=== PATIENT | male | born 2000 ===

== ENCOUNTER 2021-09-04 13:04 | Emergency (ER) | payer SELFPAY ==
[~2021-09-04] VITALS: Ht 180.3 cm; Wt 80.0 kg
[2021-09-04 13:07] VITALS: BP 126/65
== END 2021-09-04 14:00 | disposition left against medical advice (07) ==
LOC: EMS 13:08
DX: R52 Pain, unspecified (principal); Z53.21 Procedure and treatment not carried out due to patient leaving prior to being seen by health care provider